=== PATIENT | female | born 1960 | race Caucasian/White ===

== ENCOUNTER 2024-07-23 13:32 | Emergency (ER) | payer MEDICAID ==
[~2024-07-23] VITALS: Ht 162.6 cm; Wt 93.0 kg
[2024-07-23 13:38] VITALS: O2SAT 99
[2024-07-23 13:39] VITALS: BP 130/70; PULSE 83; RESP 16; TEMP 98.7; O2SAT 99
[2024-07-23] MEDS: DIAZEPAM 5 MG TABLET PO ONE (15:44)
[2024-07-23] MEDS: ACETAMINOPHEN 325MG TABLET PO ONE (15:46)
== END 2024-07-23 16:01 | disposition left against medical advice (07) ==
LOC: ER 13:32
DX: F41.9 Anxiety disorder, unspecified (principal); I10 Essential (primary) hypertension; Z98.890 Other specified postprocedural states
CPT/HCPCS: 73552; 73562; 99284